=== PATIENT | female | born 1985 | race Hispanic/Latino ===

== ENCOUNTER 2020-06-11 11:41 | Emergency (ER) | payer OTHER ==
[~2020-06-11] VITALS: Ht 149.9 cm; Wt 56.8 kg
[2020-06-11] MEDS ORDERED: birth control (12:29)
[2020-06-11] MEDS ORDERED: CEFTRIAXONE SOD 1 GM VIAL IM ONE (12:45)
[2020-06-11] MEDS ORDERED: KETOROLAC TROMETHAMINE 60 MG/2 ML VIAL IM ONE (12:45)
[2020-06-11] MEDS ORDERED: KETOROLAC TROMETHAMINE 60 MG/2 ML VIAL ONE (12:54)
[2020-06-11] MEDS ORDERED: CEFTRIAXONE SOD 1 GM VIAL ONE (12:54)
[2020-06-11] MEDS ORDERED: PYRIDIUM200 MG PO (13:21)
[2020-06-11] MEDS ORDERED: BACTRIM DS TAB1 EACH PO (13:21)
[2020-06-11 14:38] VITALS: BP 109/59
== END 2020-06-11 13:35 | disposition home or self-care (01) ==
LOC: FSED 12:10
DX: R30.0 Dysuria (principal); N39.0 Urinary tract infection, site not specified; R31.9 Hematuria, unspecified
CPT/HCPCS: 81003; 81025; 87086; 96372; 99283; J0696; J1885

== ENCOUNTER 2021-01-11 22:25 | Emergency (ER) | payer OTHER ==
[~2021-01-11] VITALS: Ht 149.9 cm; Wt 57.2 kg
[~2021-01-11 22:25] MED LIST: BACTRIM DS TAB1 EACH PO; PYRIDIUM200 MG PO; birth control
[2021-01-11] MEDS ORDERED: BACTRIM DS TAB1 EACH PO (23:01)
[2021-01-11] MEDS ORDERED: PYRIDIUM200 MG PO (23:02)
[2021-01-11 23:18] VITALS: BP 125/71
== END 2021-01-11 23:18 | disposition home or self-care (01) ==
LOC: FSED 22:46
DX: R30.0 Dysuria (principal); R11.0 Nausea
CPT/HCPCS: 81003; 81025; 99282